=== PATIENT | male | born 1955 | race Caucasian/White ===

== ENCOUNTER 2025-04-16 10:05 | Outpatient (CLI) | payer MEDICARE | END 2025-04-16 10:06 | disposition home or self-care (01) | LOC: NAV RAD 10:05 | PROVIDERS: ATTEND Student in an Organized Health Care Education/Training Program | DX: M23.91 Unspecified internal derangement of right knee (principal); M75.22 Bicipital tendinitis, left shoulder; M19.012 Primary osteoarthritis, left shoulder; M17.11 Unilateral primary osteoarthritis, right knee ==